=== PATIENT | female | born 1995 | race Caucasian/White ===

== ENCOUNTER 2018-05-30 13:35 | Emergency (ER) | payer SELFPAY ==
[~2018-05-30] VITALS: Ht 157.5 cm; Wt 36.8 kg
[2018-05-30 13:40] VITALS: BP 118/60
--- NOTE | 2018-05-30 13:42 | NUR ---
PT RETURNED TO LOBBY IN STABLE CONDITION
--- NOTE | 2018-05-30 14:12 | NUR ---
PATIENT TO BED #6 VIA WHEEL CHAIR WITH FAMILY
--- NOTE | 2018-05-30 14:15 | NUR ---
22 Y FEMALE BIB FAMILY C/O VOMITING SINCE 6:30AM, PER PT SHE DRANK TOO MUCH LAST NIGHT. PT STATES SHE TOOK 8 SHOTS, AND HAD 2 MIXED DRINKS. ABDOMINAL PAIN 10/10 ACHING. LOSS OF APPETITE. DENIES CONSTIPATION OR DIARRHEA. ABDOMEN FLAT AND SOFT, BOWEL SOUNDS IN ALL 4 QUADRANTS. VSS AT THIS TIME. AA0X4. BED IS DOWN, LOCKED, BED RAIL X 1, ERMD NOTIFIED. PMH-NONE
[2018-05-30] MEDS ORDERED: NACL 0.9% 1,000 ML IV SCH (14:59)
[2018-05-30] MEDS ORDERED: PANTOPRAZOLE 40 MG INJ VIAL IVP ONE (15:00)
[2018-05-30] MEDS ORDERED: ONDANSETRON 4 MG/2 ML VIAL IVP ONE (15:00)
--- NOTE | 2018-05-30 15:05 | NUR ---
DR SINGER AT BEDSIDE
--- NOTE | 2018-05-30 15:05 | NUR ---
MOTHERS PHONE NUMBER [phone]
[2018-05-30 15:20] LABS: BASOPHILS % (AUTO) 0.3 % (0.0-2.0); HEMATOCRIT 38.8 % (36-48); HEMOGLOBIN 12.5 g/dL (12.0-16.0); LYMPHOCYTES # (AUTO) 0.9 K/uL (2.5-16.5); LYMPHOCYTES % (AUTO) 6.1 % (20.5-51.1); MEAN CORPUSCULAR HEMOGLOBIN 27 pg (27-31); MEAN CORPUSCULAR HGB CONC 32 g/dL (33-37); MEAN CORPUSCULAR VOLUME 83.9 fL (80-94); MONOCYTES # (AUTO) 0.8 K/uL (0.8-1.0); MONOCYTES % (AUTO) 5.4 % (1.7-9.3); NEUTROPHILS # (AUTO) 12.3 K/uL (1.8-7.7); NEUTROPHILS % (AUTO) 88.2 % (42.2-75.2); PLATELET COUNT (AUTO) 283 K/uL (140-450); RED BLOOD CELL COUNT(AUTO) 4.62 MIL/uL (4.20-5.40); RED CELL DISTRIBUTION WIDTH 17.1 % (11.6-13.7)
[2018-05-30 15:29] LABS: ANION GAP 19.4 (8-16); CARBON DIOXIDE 23.2 mmol/L (21-32); CREATININE 0.8 mg/dL (0.6-1.3); POTASSIUM 3.6 mmol/L (3.5-5.1)
--- NOTE | 2018-05-30 15:30 | NUR ---
VSS AT THIS TIME. AA0X4. PT SITTING IN BED
[2018-05-30 15:36] LABS: ALBUMIN 4.3 g/dL (3.4-5.0); TOTAL BILIRUBIN 0.8 mg/dL (0.0-1.0)
[2018-05-30 16:49] VITALS: BP 121/64
--- NOTE | 2018-05-30 16:49 | NUR ---
Patient discharged with v/s stable. Written and verbal after care instructions given and explained. Patient alert, oriented and verbalized understanding of instructions. Ambulatory with steady gait. All questions addressed prior to discharge. ID band removed. Patient advised to follow up with PMD. Rx of PEPCID, ZOFRAN given. Patient educated on indication of medication including possible reaction and side effects. Opportunity to ask questions provided and answered.
== END 2018-05-30 16:49 | disposition home or self-care (01) ==
LOC: MED 13:35
DX: K29.70 Gastritis, unspecified, without bleeding (principal); F10.10 Alcohol abuse, uncomplicated; F12.10 Cannabis abuse, uncomplicated
CPT/HCPCS: 36415; 80053; 81025; 83690; 85025; 96361; 96374; 96375; 99283; C9113; J2405; J7030

== ENCOUNTER 2018-08-12 02:11 | Emergency (ER) | payer OTHER ==
[~2018-08-12] VITALS: Ht 157.5 cm; Wt 37.9 kg
[2018-08-12 02:19] VITALS: BP 135/68
--- NOTE | 2018-08-12 02:23 | NUR ---
PT AMBULATED TO ER BED 6
--- NOTE | 2018-08-12 02:39 | NUR ---
22 Y/O F PRESENTED TO ED WITH C/O LOWER ABDOMINAL PAIN X1 DAY WITH N/V SECONDARY TO MENUSTRAL CYCLE. PER PT "USUALLY HAVE HEAVY CYCLES AND ITS MOSTLY ALWAYS PAINFUL." NO ABDOMINAL TENDERNESS. 8/10 PAIN, ACHING AND CRAMPING. PT STATED DURING CYCLE FLOW IS HEAVY AND REQUIRING CHANGE OF SANITARY PADS 3-4X WITHIN ONE DAY. PT LYING IN POSTION FOR OMFORT. BED IN LOWEST POSITON. ERMD NOTIFIED. WILL CONTINUE TO MONITOR.
[2018-08-12 02:50] LABS: APPEARANCE,URINE CLOUDY (CLEAR); BILIRUBIN,URINE NEGATIVE (NEGATIVE); BLOOD, URINE 3+ (NEGATIVE); COLOR,URINE YELLOW (YELLOW); LEUKOCYTE ESTERASE ,URINE NEGATIVE (NEGATIVE); NITRITE, URINE NEGATIVE (NEGATIVE); PH,URINE 8.5 (5.0-9.0); UGLUCOSE NEGATIVE (NEGATIVE)
[2018-08-12 02:57] LABS: WBC,URINE 0-5 /HPF (0-5)
--- NOTE | 2018-08-12 02:59 | NUR ---
DR. FINN BEDSIDE EVALUATING PT
[2018-08-12] MEDS ORDERED: NACL 0.9% 1,000 ML IV ONE (03:16)
[2018-08-12] MEDS ORDERED: ONDANSETRON 4 MG/2 ML VIAL IVP ONE (03:20)
[2018-08-12] MEDS ORDERED: KETOROLAC 15 MG/ML VIAL IVP ONE (03:20)
[2018-08-12] MEDS ORDERED: KETOROLAC 15 MG/ML VIAL ONE (03:30)
[2018-08-12] MEDS ORDERED: KETOROLAC 30 MG/ML VIAL ONE (03:32)
--- NOTE | 2018-08-12 04:05 | NUR ---
PT AWAKE IN BED, LYING SUPINE. VSS. WILL CONTINUE TO MONITOR.
[2018-08-12 04:14] LABS: ANION GAP 12.9 (8-16); CARBON DIOXIDE 27.6 mmol/L (21-32); CREATININE 0.7 mg/dL (0.6-1.3); POTASSIUM 3.5 mmol/L (3.5-5.1)
[2018-08-12 04:15] LABS: BASOPHILS % (AUTO) 0.4 % (0.0-2.0); HEMATOCRIT 38.1 % (36-48); HEMOGLOBIN 12.4 g/dL (12.0-16.0); LYMPHOCYTES # (AUTO) 0.8 K/uL (2.5-16.5); LYMPHOCYTES % (AUTO) 13.8 % (20.5-51.1); MEAN CORPUSCULAR HEMOGLOBIN 28 pg (27-31); MEAN CORPUSCULAR HGB CONC 33 g/dL (33-37); MEAN CORPUSCULAR VOLUME 86.2 fL (80-94); MONOCYTES # (AUTO) 0.3 K/uL (0.8-1.0); MONOCYTES % (AUTO) 4.8 % (1.7-9.3); NEUTROPHILS # (AUTO) 4.9 K/uL (1.8-7.7); PLATELET COUNT (AUTO) 236 K/uL (140-450); RED BLOOD CELL COUNT(AUTO) 4.42 MIL/uL (4.20-5.40); RED CELL DISTRIBUTION WIDTH 15.7 % (11.6-13.7)
[2018-08-12 04:26] LABS: ALBUMIN 3.9 g/dL (3.4-5.0); TOTAL BILIRUBIN 0.5 mg/dL (0.0-1.0)
--- NOTE | 2018-08-12 04:31 | NUR ---
PT STATED SHE WAS FEELING RELIEF AFTER RECIEVING FLUIDS. WILL CONTINUE TO MONITOR.
[2018-08-12 04:51] VITALS: BP 91/44
== END 2018-08-12 04:51 | disposition home or self-care (01) ==
LOC: MED 02:11
DX: N94.6 Dysmenorrhea, unspecified (principal); R11.2 Nausea with vomiting, unspecified
CPT/HCPCS: 36415; 80053; 81001; 81025; 83690; 85025; 87086; 96361; 96374; 96375; 99283; J1885; J2405; J7030

== ENCOUNTER 2018-09-17 20:29 | Emergency (ER) | payer OTHER ==
[~2018-09-17] VITALS: Ht 157.5 cm; Wt 38.6 kg
--- NOTE | 2018-09-17 20:35 | NUR ---
TO BED # 08 AMBULATORY
[2018-09-17 20:37] VITALS: BP 110/74
--- NOTE | 2018-09-17 21:03 | NUR ---
Dr. Emery examining patient.
--- NOTE | 2018-09-17 21:32 | NUR ---
PT TO ED WITH C/O LOWER ABD PAIN, WITH N/V X THIS AM. NO ABD DISTENTION NOTED. BOWEL SOUNDS ACTIVE X 4. PT PLACED INTO BED PENDING MD PEREZ.
[2018-09-17] MEDS ORDERED: KETOROLAC 60 MG/2 ML VIAL IM ONE (21:45)
[2018-09-17 22:25] VITALS: BP 110/74
--- NOTE | 2018-09-17 22:26 | NUR ---
Patient discharged with v/s stable. Written and verbal after care instructions given and explained. Patient alert, oriented and verbalized understanding of instructions. Ambulatory with steady gait. All questions addressed prior to discharge. ID band removed. Patient advised to follow up with PMD. Rx of MOTRIN, ZOFRAN given. Patient educated on indication of medication including possible reaction and side effects. Opportunity to ask questions provided and answered.
== END 2018-09-17 22:26 | disposition home or self-care (01) ==
LOC: MED 20:29
DX: N94.6 Dysmenorrhea, unspecified (principal)
CPT/HCPCS: 96372; 99283; J1885

== ENCOUNTER 2019-03-17 07:56 | Emergency (ER) | payer MEDICAID, OTHER ==
[~2019-03-17] VITALS: Ht 160 cm; Wt 40.8 kg
--- NOTE | 2019-03-17 08:05 | NUR ---
PATIENT AMBULATED WITH STEADY GAIT TO BED 6.
--- NOTE | 2019-03-17 08:10 | NUR ---
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 DENIES HX/MEDS
[2019-03-17 08:15] VITALS: BP 145/90
[2019-03-17] MEDS ORDERED: NACL 0.9% 1,000 ML IV ONE (08:30)
[2019-03-17] MEDS ORDERED: ONDANSETRON 4 MG/2 ML VIAL IVP ONE ×2 (08:30→11:20)
[2019-03-17] MEDS ORDERED: KETOROLAC 15 MG/ML VIAL IVP ONE (08:35)
[2019-03-17 09:05] LABS: BASOPHILS % (AUTO) 0.3 % (0.0-2.0); EOSINOPHILS % (AUTO) 0.1 % (0.0-4.0); HEMATOCRIT 38.5 % (36-48); HEMOGLOBIN 12.4 g/dL (12.0-16.0); LYMPHOCYTES # (AUTO) 1.3 K/uL (2.5-16.5); LYMPHOCYTES % (AUTO) 11.6 % (20.5-51.1); MEAN CORPUSCULAR HEMOGLOBIN 29 pg (27-31); MEAN CORPUSCULAR HGB CONC 32 g/dL (33-37); MEAN CORPUSCULAR VOLUME 88.9 fL (80-94); MONOCYTES # (AUTO) 0.7 K/uL (0.8-1.0); NEUTROPHILS # (AUTO) 9.5 K/uL (1.8-7.7); PLATELET COUNT (AUTO) 212 K/uL (140-450); RED BLOOD CELL COUNT(AUTO) 4.33 MIL/uL (4.20-5.40); WHITE BLOOD COUNT (AUTO) 11.6 K/uL (4.8-10.8)
[2019-03-17 09:39] LABS: ANION GAP 17.2 (8-16); CARBON DIOXIDE 22.3 mmol/L (21-32); CREATININE 0.7 mg/dL (0.6-1.3); POTASSIUM 3.5 mmol/L (3.5-5.1)
[2019-03-17 09:44] LABS: TOTAL BILIRUBIN 0.5 mg/dL (0.0-1.0)
[2019-03-17 09:45] LABS: ALBUMIN 3.9 g/dL (3.4-5.0)
[2019-03-17 14:04] VITALS: BP 124/72
--- NOTE | 2019-03-17 14:06 | NUR ---
Patient discharged with v/s stable. Written and verbal after care instructions given and explained. Patient alert, oriented and verbalized understanding of instructions. Ambulatory with steady gait. All questions addressed prior to discharge. ID band removed. Patient advised to follow up with PMD. Rx of ZOFRAN,MOTRIN given. Patient educated on indication of medication including possible reaction and side effects. Opportunity to ask questions provided and answered.
== END 2019-03-17 14:06 | disposition home or self-care (01) ==
LOC: MED 07:56
DX: N94.6 Dysmenorrhea, unspecified (principal); F14.10 Cocaine abuse, uncomplicated; F12.10 Cannabis abuse, uncomplicated; R11.2 Nausea with vomiting, unspecified
CPT/HCPCS: 36415; 80053; 81002; 81025; 85025; 96361; 96374; 96375; 96376; 99283; J1885; J2405; J7030

== ENCOUNTER 2019-05-30 08:46 | Emergency (ER) | payer MEDICAID ==
[~2019-05-30] VITALS: Ht 157.5 cm; Wt 41.3 kg
[2019-05-30 08:52] VITALS: BP 148/79
--- NOTE | 2019-05-30 08:57 | NUR ---
Pt ambulated to restroom to provide urine sample
--- NOTE | 2019-05-30 09:00 | NUR ---
Patient ambulated to bed 12. RN evaluating patient at bedside.
--- NOTE | 2019-05-30 09:00 | NUR ---
PT C/O VAGINAL PAIN/SWELLING & ITCHING X2 DAYS. PT DENIES NEW SEXUAL PARTNERS OR NEW SOAPS/CREAMS ETC. PT ALSO REPORTS "JUST A LITTLE WHITE DISCHARGE". SWELLING/REDNESS NOTED TO EXTERNAL LABIA. BED IN LOW POSITION, SIDE RAIL UP X1.
--- NOTE | 2019-05-30 09:20 | NUR ---
PELVIC EXAM SET UP AT BEDSIDE
--- NOTE | 2019-05-30 09:26 | NUR ---
Chaperoned Dr. Cueto for Pelvic Exam. Pt tolerated procedure well. Cultures handed to screedman/laborer.
[2019-05-30 09:37] LABS: APPEARANCE,URINE HAZY (CLEAR); BILIRUBIN,URINE NEGATIVE (NEGATIVE); BLOOD, URINE 2+ (NEGATIVE); COLOR,URINE ORANGE (YELLOW); LEUKOCYTE ESTERASE ,URINE TRACE (NEGATIVE); NITRITE, URINE NEGATIVE (NEGATIVE); PH,URINE 5.5 (5.0-9.0); UGLUCOSE NEGATIVE (NEGATIVE)
[2019-05-30 10:34] VITALS: BP 148/79
--- NOTE | 2019-05-30 10:35 | NUR ---
Patient discharged with v/s stable. Written and verbal after care instructions given and explained. Patient alert, oriented and verbalized understanding of instructions. Ambulatory with steady gait. All questions addressed prior to discharge. ID band removed. Patient advised to follow up with PMD. Rx of clotramizole given. Patient educated on indication of medication including possible reaction and side effects. Opportunity to ask questions provided and answered.
[2019-05-30 10:44] LABS: RBC,URINE 0-5 /HPF (0-5); WBC,URINE 0-5 /HPF (0-5)
[2019-06-01 06:07] LABS: CHLAMYDIA TRACHOMATIS AMP DNA Negative (Negative)
== END 2019-05-30 10:35 | disposition home or self-care (01) ==
LOC: MED 08:46
DX: B37.3 Candidiasis of vulva and vagina (principal); F12.90 Cannabis use, unspecified, uncomplicated
CPT/HCPCS: 36415; 81001; 81025; 87070; 87205; 87210; 87491; 99283

== ENCOUNTER 2019-10-05 06:02 | Emergency (ER) | payer MEDICAID ==
[~2019-10-05] VITALS: Ht 157.5 cm; Wt 40.4 kg
[2019-10-05 06:06] VITALS: BP 121/77
--- NOTE | 2019-10-05 06:12 | NUR ---
PT TAKEN TO BED 7
--- NOTE | 2019-10-05 06:21 | NUR ---
Dr. Trevino examining patient.
[2019-10-05] MEDS ORDERED: HYDROcodone/APAP 10/325 MG 1 TAB TAB PO STA (06:24)
[2019-10-05] MEDS ORDERED: AMOXIL/CLAVULANATE 875/125 MG 1 TAB PO ONE (06:25)
[2019-10-05] MEDS ORDERED: IBUPROFEN 600 MG TAB PO ONE (06:25)
--- NOTE | 2019-10-05 06:30 | NUR ---
PT SITTING QUIETLY IN BED WITH NO ACUTE DISTRESS.
--- NOTE | 2019-10-05 06:37 | NUR ---
MEDICATED WITH NORCO, MOTRIN AND AUGMENTIN. WILL REASSESS.
[2019-10-05 07:00] VITALS: BP 119/75
--- NOTE | 2019-10-05 07:00 | NUR ---
Patient discharged with v/s stable. Written and verbal after care instructions given and explained. Patient alert, oriented and verbalized understanding of instructions. Ambulatory with steady gait. All questions addressed prior to discharge. ID band removed. Patient advised to follow up with PMD. Rx of Augmentin, [place], and Ibuprofen given. Patient educated on indication of medication including possible reaction and side effects. Opportunity to ask questions provided and answered.
== END 2019-10-05 07:00 | disposition home or self-care (01) ==
LOC: MED 06:02
DX: S02.5XXA Fracture of tooth (traumatic), initial encounter for closed fracture (principal); K02.9 Dental caries, unspecified; X58.XXXA Exposure to other specified factors, initial encounter; Y93.89 Activity, other specified; Y92.89 Other specified places as the place of occurrence of the external cause; Y99.8 Other external cause status
CPT/HCPCS: 99284

== ENCOUNTER 2019-10-11 09:16 | Emergency (ER) | payer MEDICAID ==
[~2019-10-11] VITALS: Ht 157.5 cm; Wt 41.3 kg
[2019-10-11 09:20] VITALS: BP 116/73
--- NOTE | 2019-10-11 09:24 | NUR ---
Patient ambulated to bed 4 after providing a urine specimen. RN evaluating patient at bedside.
--- NOTE | 2019-10-11 09:28 | NUR ---
24 Y/O F C/C VAGINAL DISCOMFORT/NAUSEA X 3 DAYS. PER PT VAGINAL AREA WITH ITCHINESS, NO REDNESS NOTED, NO RASH, NO VAGINAL DISCHARGE. PT UNSURE OF , AND LAST RECENT SEXUAL INTERCOURSE THIS MORNING. NKA. NO HX. CURRENTLY TAKING AMOXICILLIN FOR A TOOTH INFECTION. NO VOMITING/DIARREAH. SIDE RAIL X1.
--- NOTE | 2019-10-11 09:35 | NUR ---
Dr. Emery is evaluating the patient at bedside.
--- NOTE | 2019-10-11 09:44 | NUR ---
ERMD AT BEDSIDE
[2019-10-11] MEDS ORDERED: AZITHROMYCIN 250 MG TAB PO ONE (10:00)
[2019-10-11] MEDS ORDERED: cefTRIAXone 250 MG in LIDOCAINE MPF 1% 0.9 ML IM ONE (10:00)
[2019-10-11] MEDS ORDERED: cefTRIAXone 250 MG VIAL ONE (10:03)
[2019-10-11] MEDS ORDERED: LIDOCAINE MPF 1% 5 ML ONE (10:03)
[2019-10-11 10:19] VITALS: BP 128/78
--- NOTE | 2019-10-11 10:19 | NUR ---
Patient discharged with v/s stable. Written and verbal after care instructions given and explained. Patient alert, oriented and verbalized understanding of instructions. Ambulatory with steady gait. All questions addressed prior to discharge. ID band removed. Patient advised to follow up with PMD. Rx of CIPRO,DIFLUCAN given. Patient educated on indication of medication including possible reaction and side effects. Opportunity to ask questions provided and answered.
[2019-10-14 06:07] LABS: CHLAMYDIA TRACHOMATIS AMP DNA Negative (Negative)
== END 2019-10-11 10:19 | disposition home or self-care (01) ==
LOC: MED 09:16
DX: N39.0 Urinary tract infection, site not specified (principal)
CPT/HCPCS: 36415; 81002; 81025; 87491; 96372; 99283; J0696; J2001

== ENCOUNTER 2020-03-28 17:43 | Emergency (ER) | payer MEDICAID ==
[~2020-03-28] VITALS: Ht 157.5 cm; Wt 42.6 kg
[2020-03-28 17:51] VITALS: BP 99/59
--- NOTE | 2020-03-28 17:59 | NUR ---
24 YO F BIB SELF FOR C/C OF 5/10 R LOWER TOOTHACHE X2 DAYS. PT STATES THIS HAS BEEN AN ONGOING PROBLEM THAT COMES AND GOES FOR 3 MONTHS AND HASNT SEEN A DENTIST DUE TO INSURANCE ISSUES. PT STATES SHE TOOK 1200MG OF IBUPROFEN AND 10MG OF NORCO APPROX 2 HOURS AGO WHICH BROUGHT DOWN HER 10/10 PAIN. PT DENIES FEVERS, AIRWAY IS INTACT. BED LOCKED AND IN LOWEST POSITION. SIDE RAILS X1. MED HX: DENIES NKA
--- NOTE | 2020-03-28 18:03 | NUR ---
ZACARIAS CASTANON AT BEDSIDE
[2020-03-28] MEDS: KETOROLAC 30 MG/ML VIAL IM ONE (18:40)
[2020-03-28 18:41] VITALS: BP 99/59
--- NOTE | 2020-03-28 18:41 | NUR ---
Patient discharged with v/s stable. Written and verbal after care instructions given and explained. Patient alert, oriented and verbalized understanding of instructions. Ambulatory with steady gait. All questions addressed prior to discharge. ID band removed. Patient advised to follow up with PMD. Rx of AUGMENTIN, NORCO given. Patient educated on indication of medication including possible reaction and side effects. Opportunity to ask questions provided and answered.
== END 2020-03-28 18:41 | disposition home or self-care (01) ==
LOC: MED 17:43
DX: K08.89 Other specified disorders of teeth and supporting structures (principal)
CPT/HCPCS: 96372; 99283; J1885

== ENCOUNTER 2020-06-13 07:41 | Emergency (ER) | payer MEDICAID ==
[~2020-06-13] VITALS: Ht 160 cm; Wt 40.8 kg
[2020-06-13 07:44] VITALS: BP 132/94
--- NOTE | 2020-06-13 07:48 | NUR ---
PT AMBULATED TO ER BED 11 WITH A STEADY GAIT.
--- NOTE | 2020-06-13 07:52 | NUR ---
24 Y/O FEMALE C/O VOMTING X4HRS WITH CRAMPING 8/10 TO SUPRAPUBIC REGION WITH SOME MINIMAL SPOTTING. LMP 05/04/20. PT STATES SHE TOOK 3 HOME TESTS AND ALL WERE NEGATIVE. ABDOMEN IS SOFT, FLAT, NON-TENDER, BOWEL SOUNDS ACTIVE X4, LAST BM 06/12/20. DENIES DYSURIA/D/C. DENIES FEVER/CHILLS. DENIES PMH NKA
--- NOTE | 2020-06-13 08:03 | NUR ---
Dr. Jordan at pt bedside for further evaluation.
[2020-06-13] MEDS ORDERED: diphenhydrAMINE 50 MG/ML VIAL IVP ONE (08:10)
[2020-06-13] MEDS ORDERED: METOCLOPRAMIDE 10 MG/2 ML INJ VIAL IVP ONE (08:10)
--- NOTE | 2020-06-13 08:19 | NUR ---
catheterization laboratory technician at pt bedside.
[2020-06-13 08:27] LABS: BASOPHILS % (AUTO) 0.5 % (0.0-2.0); EOSINOPHILS # (AUTO) 0.1 K/uL (0-0.4); EOSINOPHILS % (AUTO) 0.8 % (0.0-4.0); HEMATOCRIT 39.5 % (36-48); HEMOGLOBIN 12.9 g/dL (12.0-16.0); LYMPHOCYTES % (AUTO) 27.6 % (20.5-51.1); MEAN CORPUSCULAR HEMOGLOBIN 29 pg (27-31); MEAN CORPUSCULAR HGB CONC 33 g/dL (33-37); MEAN CORPUSCULAR VOLUME 89.6 fL (80-94); MONOCYTES # (AUTO) 0.7 K/uL (0.8-1.0); MONOCYTES % (AUTO) 10.1 % (1.7-9.3); NEUTROPHILS # (AUTO) 4.5 K/uL (1.8-7.7); PLATELET COUNT (AUTO) 229 K/uL (140-450); RED BLOOD CELL COUNT(AUTO) 4.41 MIL/uL (4.20-5.40); RED CELL DISTRIBUTION WIDTH 13.6 % (11.6-13.7); WHITE BLOOD COUNT (AUTO) 7.3 K/uL (4.8-10.8)
[2020-06-13] MEDS ORDERED: KETOROLAC 30 MG/ML VIAL IVP ONE (08:40)
[2020-06-13 08:42] LABS: ALBUMIN 3.8 g/dL (3.4-5.0); ANION GAP 10.9 (8-16); CREATININE 0.7 mg/dL (0.6-1.3); POTASSIUM 3.9 mmol/L (3.5-5.1); TOTAL BILIRUBIN 0.3 mg/dL (0.0-1.0)
[2020-06-13] MEDS ORDERED: ONDA-24 SL (09:23)
[2020-06-13] MEDS ORDERED: NAPR-1704 PO (09:23)
[2020-06-13 09:29] VITALS: BP 132/94
--- NOTE | 2020-06-13 09:30 | NUR ---
Patient discharged with v/s stable. Written and verbal after care instructions given and explained. Patient alert, oriented and verbalized understanding of instructions. Ambulatory with steady gait. All questions addressed prior to discharge. ID band removed. Patient advised to follow up with PMD. Rx of ZOFRAN 4MG ODT Q8H, AND NAPROSYN 375MG PO BID PRN PAIN given. Patient educated on indication of medication including possible reaction and side effects. Opportunity to ask questions provided and answered.
== END 2020-06-13 09:30 | disposition home or self-care (01) ==
LOC: MED 07:41
DX: N94.6 Dysmenorrhea, unspecified (principal); R11.2 Nausea with vomiting, unspecified; F12.10 Cannabis abuse, uncomplicated; Z79.899 Other long term (current) drug therapy
CPT/HCPCS: 36415; 80053; 81025; 83690; 84703; 85025; 96374; 96375; 99284; J1200; J1885; J2765; 81002

== ENCOUNTER 2022-06-30 14:49 | Emergency (ER) | payer MEDICAID, OTHER ==
[~2022-06-30] VITALS: Ht 157.5 cm; Wt 40.4 kg
[~2022-06-30 14:49] MED LIST: NAPR-1704 PO; ONDA-188 SL
[2022-06-30 15:01] VITALS: BP 122/78
[2022-06-30] MEDS ORDERED: KETOROLAC 30 MG/ML VIAL IM ONE (15:20)
[2022-06-30] MEDS ORDERED: ACETAMINOPHEN EXTRA STRENGTH 500 MG TAB PO ONE (16:25)
[2022-06-30] MEDS ORDERED: IBUP-1842 PO (16:27)
[2022-06-30] MEDS ORDERED: ACET-10509 PO (16:27)
--- NOTE | 2022-06-30 16:42 | NUR ---
LO WRAP TO RT FOOT , ADDITIONAL PAIN MEDS GIVEN
--- NOTE | 2022-06-30 16:44 | NUR ---
Patient discharged with v/s stable. Written and verbal after care instructions given and explained. Patient alert, oriented and verbalized understanding of instructions. Ambulatory with to car. All questions addressed prior to discharge. ID band removed. Patient advised to follow up with PMD. Rx of MOTRIN , TYLENOL given. Patient educated on indication of medication including possible reaction and side effects. Opportunity to ask questions provided and answered.
== END 2022-06-30 16:43 | disposition home or self-care (01) ==
LOC: MED 14:49
DX: S93.601A Unspecified sprain of right foot, initial encounter (principal); Z79.899 Other long term (current) drug therapy; F12.90 Cannabis use, unspecified, uncomplicated; X58.XXXA Exposure to other specified factors, initial encounter; Y93.89 Activity, other specified; Y92.89 Other specified places as the place of occurrence of the external cause; Y99.8 Other external cause status
CPT/HCPCS: 73630; 81025; 99283; J1885; Q0092

== ENCOUNTER 2023-06-30 05:34 | Emergency (ER) | payer OTHER ==
[~2023-06-30] VITALS: Ht 157.5 cm; Wt 40.8 kg
[~2023-06-30 05:34] MED LIST changes: +ACET-10509 PO; +IBUP-1842 PO
[2023-06-30 05:57] VITALS: BP 105/72; PULSE 90; RESP 16; TEMP 97.6; O2SAT 97
[2023-06-30 07:02] LABS: BASOPHILS % (AUTO) 0.4 % (0.0-2.0); EOSINOPHILS # (AUTO) 0.1 K/uL (0-0.4); EOSINOPHILS % (AUTO) 0.8 % (0.0-4.0); HEMATOCRIT 39.6 % (36-48); HEMOGLOBIN 13.1 g/dL (12.0-16.0); LYMPHOCYTES # (AUTO) 1.1 K/uL (2.5-16.5); LYMPHOCYTES % (AUTO) 11.2 % (20.5-51.1); MEAN CORPUSCULAR HEMOGLOBIN 29 pg (27-31); MEAN CORPUSCULAR HGB CONC 33 g/dL (33-37); MEAN CORPUSCULAR VOLUME 88.1 fL (80-94); MONOCYTES # (AUTO) 0.7 K/uL (0.8-1.0); MONOCYTES % (AUTO) 6.7 % (1.7-9.3); NEUTROPHILS % (AUTO) 80.9 % (42.2-75.2); PLATELET COUNT (AUTO) 219 K/uL (140-450); RED CELL DISTRIBUTION WIDTH 14.8 % (11.6-13.7); WHITE BLOOD COUNT (AUTO) 9.8 K/uL (4.8-10.8)
[2023-06-30] MEDS: NACL 0.9% 1,000 ML IV SCH (07:04)
[2023-06-30] MEDS: KETOROLAC 30 MG/ML VIAL IVP ONE (07:04)
[2023-06-30] MEDS: diphenhydrAMINE 50 MG/ML VIAL IVP ONE (07:05)
[2023-06-30] MEDS: METOCLOPRAMIDE 10 MG/2 ML INJ VIAL IVP ONE (07:08)
[2023-06-30 07:16] LABS: ANION GAP 11.4 (8-16); CALCIUM 8.8 mg/dL (8.5-10.1); CREATININE 0.7 mg/dL (0.6-1.3); POTASSIUM 3.4 mmol/L (3.5-5.1)
[2023-06-30 07:28] LABS: ALBUMIN 3.6 g/dL (3.4-5.0); BILIRUBIN,DIRECT 0.1 mg/dL (0.0-0.3); TOTAL BILIRUBIN 0.3 mg/dL (0.0-1.0); TOTAL PROTEIN, SERUM 7.2 g/dL (6.4-8.2)
[2023-06-30] MEDS: diazePAM 5 MG TAB PO ONE (07:51)
[2023-06-30 08:29] LABS: APPEARANCE,URINE CLEAR (CLEAR); BILIRUBIN,URINE NEGATIVE (NEGATIVE); BLOOD, URINE 2+ (NEGATIVE); COLOR,URINE YELLOW (YELLOW); LEUKOCYTE ESTERASE ,URINE NEGATIVE (NEGATIVE); NITRITE, URINE NEGATIVE (NEGATIVE); PROTEIN,URINE NEGATIVE (NEGATIVE); UGLUCOSE NEGATIVE (NEGATIVE); UROBILINOGEN,URINE 0.2 EU/dL (0.2 - 1)
[2023-06-30 08:53] LABS: BACTERIA,URINE 10-30 (MOD) /HPF (None Seen); SQUAMOUS EPITHELIAL CELL,UR 0-3 (FEW) /LPF (0-3 (FEW)); WBC,URINE 0-5 /HPF (0-5)
[2023-06-30] MEDS ORDERED: IBUP-1842 PO (08:58)
[2023-06-30] MEDS ORDERED: ONDA-188 SL (08:58)
[2023-06-30] MEDS ORDERED: CEPH-588 PO (08:58)
[2023-06-30 09:09] VITALS: BP 105/72; PULSE 110; RESP 16; O2SAT 98
== END 2023-06-30 09:09 | disposition home or self-care (01) ==
LOC: MED 05:34
DX: N94.6 Dysmenorrhea, unspecified (principal); R11.0 Nausea; N30.91 Cystitis, unspecified with hematuria; Z79.1 Long term (current) use of non-steroidal anti-inflammatories (NSAID); Z79.2 Long term (current) use of antibiotics; Z79.899 Other long term (current) drug therapy
CPT/HCPCS: 36415; 80048; 80076; 81001; 81025; 83690; 85025; 87086; 96361; 96374; 96375; 99284; J1200; J1885; J2765; J7030

== ENCOUNTER 2023-10-06 23:44 | Emergency (ER) | payer OTHER ==
[~2023-10-06] VITALS: Ht 157.5 cm; Wt 39.9 kg
[~2023-10-06 23:44] MED LIST changes: -ACET-10509 PO; +ACET500T99 PO; +CEPH-588 PO
[2023-10-06 23:50] VITALS: BP 113/79; PULSE 89; RESP 16; TEMP 98.3; O2SAT 97
--- NOTE | 2023-10-07 | NUR ---
TO LOBBY FOLLOWING TRIAGE
--- NOTE | 2023-10-07 01:02 | NUR ---
CALLED PATIENT TO SEE MD, NO ANSWER IN LOBBY OR OUTSIDE OF THE WAITING ROOM.
--- NOTE | 2023-10-07 01:10 | NUR ---
CALLED PATIENT VIA PHONE TO SEE IF THEY WERE STILL ON THE PROPERTY. 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
--- NOTE | 2023-10-07 01:10 | NUR ---
PATIENT WILL BE REMOVED LWBS
== END 2023-10-07 01:10 | disposition left against medical advice (07) ==
LOC: MED 23:44
DX: R51.9 Headache, unspecified (principal); Z53.21 Procedure and treatment not carried out due to patient leaving prior to being seen by health care provider

== ENCOUNTER 2023-12-01 01:21 | Emergency (ER) | payer OTHER ==
[~2023-12-01] VITALS: Ht 157.5 cm; Wt 44.5 kg
[2023-12-01 01:23] VITALS: BP 141/94; PULSE 66; RESP 14; TEMP 97.6; O2SAT 99
[2023-12-01] MEDS: ALUMINUM HYD/MAG/SIMETHICONE 30 ML UDC PO ONE (01:57)
[2023-12-01 02:01] LABS: BASOPHILS % (AUTO) 0.2 % (0.0-2.0); EOSINOPHILS % (AUTO) 0.4 % (0.0-4.0); HEMATOCRIT 39.3 % (36-48); HEMOGLOBIN 12.7 g/dL (12.0-16.0); LYMPHOCYTES # (AUTO) 1.4 K/uL (2.5-16.5); LYMPHOCYTES % (AUTO) 14.5 % (20.5-51.1); MEAN CORPUSCULAR HEMOGLOBIN 29 pg (27-31); MEAN CORPUSCULAR HGB CONC 32 g/dL (33-37); MEAN CORPUSCULAR VOLUME 89.7 fL (80-94); MONOCYTES # (AUTO) 0.7 K/uL (0.8-1.0); MONOCYTES % (AUTO) 6.9 % (1.7-9.3); NEUTROPHILS # (AUTO) 7.6 K/uL (1.8-7.7); PLATELET COUNT (AUTO) 221 K/uL (140-450); RED BLOOD CELL COUNT(AUTO) 4.38 MIL/uL (4.20-5.40); RED CELL DISTRIBUTION WIDTH 14.3 % (11.6-13.7); WHITE BLOOD COUNT (AUTO) 9.8 K/uL (4.8-10.8)
[2023-12-01 02:15] LABS: POTASSIUM 3.7 mmol/L (3.5-5.1)
[2023-12-01 02:16] LABS: CALCIUM 8.7 mg/dL (8.5-10.1); CARBON DIOXIDE 30.7 mmol/L (21-32); CREATININE 0.7 mg/dL (0.6-1.3)
[2023-12-01 02:21] LABS: ALBUMIN 3.6 g/dL (3.4-5.0); BILIRUBIN,DIRECT 0.1 mg/dL (0.0-0.3); TOTAL BILIRUBIN 0.2 mg/dL (0.0-1.0); TOTAL PROTEIN, SERUM 7.4 g/dL (6.4-8.2)
[2023-12-01 02:53] VITALS: BP 141/94; PULSE 66; RESP 14; TEMP 97.6; O2SAT 99
[2023-12-01] MEDS ORDERED: FAMO-92 PO (02:59)
[2023-12-01] MEDS ORDERED: SUCR1TAB56 PO (02:59)
== END 2023-12-01 03:06 | disposition home or self-care (01) ==
LOC: MED 01:21
DX: K29.70 Gastritis, unspecified, without bleeding (principal); R03.0 Elevated blood-pressure reading, without diagnosis of hypertension; Z79.899 Other long term (current) drug therapy
CPT/HCPCS: 36415; 80048; 80076; 81025; 83690; 85025; 99283